=== PATIENT | male | born 1945 | race Caucasian/White ===

== ENCOUNTER 2020-09-13 11:04 | Inpatient (IN) | payer BC, OTHER ==
[2020-09-13 13:00] LABS: URINE APPEARANCE CLEAR; URINE BILIRUBIN NEGATIVE (NEGATIVE); URINE COLOR YELLOW; URINE GLUCOSE (UA) 3+ (NEGATIVE); URINE KETONE NEGATIVE (NEGATIVE); URINE LEUK ESTERASE NEGATIVE (NEGATIVE); URINE NITRITE NEGATIVE (NEGATIVE); URINE PROTEIN NEGATIVE (NEGATIVE); URINE UROBILINOGEN 0.2 mg/dL (0.2-1.0)
[2020-09-13 13:28] LABS: BASO % 0.6 % (0-2.0); EOS % 4.1 % (0-4.5); HEMOGLOBIN 15.2 GM/dL (11.7-16.9); LYMPH % 17.9 % (8-40); MCH 27.7 pg (25.7-33.7); MCHC 33.1 g/dl (32.0-35.9); MEAN CELL VOLUME 83.9 fl (80-96); MEAN PLT VOLUME 9.3 fl (7.5-11.1); MONO % 9.6 % (3.8-10.2); NEUT % 67.8 % (42.8-82.8); PLATELET COUNT 171 10^3/uL (134-434); RBC 5.49 M/mm3 (4.00-5.60); RDW 14.3 % (11.9-15.9); WHITE BLOOD COUNT 5.8 K/mm3 (4.0-10.0)
[2020-09-13 13:51] LABS: CALCIUM 9.2 mg/dL (8.5-10.1)
[2020-09-13 13:52] LABS: ALBUMIN 3.8 g/dl (3.4-5.0); BLOOD UREA NITROGEN 15.4 mg/dL (7-18)
[2020-09-13 13:55] LABS: CREATININE 1.1 mg/dL (0.55-1.3)
[2020-09-13 13:56] LABS: BILIRUBIN,TOTAL 0.4 mg/dL (0.2-1)
[2020-09-13 13:57] LABS: TOT PROT 7.3 g/dl (6.4-8.2)
[2020-09-13] MEDS ORDERED: CEFTRIAXONE 1,000 MG in DEXTROSE 5%-WATER - 50 ML IVPB ONE (16:50)
[2020-09-13] MEDS ORDERED: CEFTRIAXONE 1 GM/50 ML BAG ONE (17:15)
[2020-09-13 18:28] LABS: EPI CELLS 1 /uL (0-25.1); HYALINE CASTS 0 /uL (0-3.1); URINE BACTERIA 12 /uL (0-1359); URINE RBC 2 /uL (0-23.9); URINE WBC 1 /uL (0-25.8)
[2020-09-13] MEDS: SODIUM CHLORIDE 0.45% 1,000 ML IV SCH (23:42)
[2020-09-14 01:46] LABS: HEMATOCRIT 45.8 % (35.4-49); HEMOGLOBIN 15.1 GM/dL (11.7-16.9); MCH 27.5 pg (25.7-33.7); MCHC 32.9 g/dl (32.0-35.9); MEAN CELL VOLUME 83.5 fl (80-96); MEAN PLT VOLUME 9.2 fl (7.5-11.1); PLATELET COUNT 188 10^3/uL (134-434); RBC 5.48 M/mm3 (4.00-5.60); RDW 14.2 % (11.9-15.9); WHITE BLOOD COUNT 8.5 K/mm3 (4.0-10.0)
[2020-09-14 01:54] LABS: INR 1.02 (0.83-1.09); PROTHROMBIN TIME (PATIENT) 12.5 SEC (9.7-13.0)
[2020-09-14 01:56] LABS: ACTIVATED PTT 49.9 SECONDS (25.2-36.5)
[2020-09-14 03:23] VITALS: BMI 30.1
[2020-09-14] MEDS: INSULIN SLIDING SCALE (NOVOLOG) 1 VIAL SQ SCH ×4 (07:01→21:32)
[2020-09-14 07:17] LABS: BASO % 0.6 % (0-2.0); HEMATOCRIT 44.4 % (35.4-49); HEMOGLOBIN 14.7 GM/dL (11.7-16.9); LYMPH % 17.8 % (8-40); MCH 27.8 pg (25.7-33.7); MCHC 33.1 g/dl (32.0-35.9); MEAN CELL VOLUME 83.9 fl (80-96); MEAN PLT VOLUME 9.6 fl (7.5-11.1); MONO % 10.9 % (3.8-10.2); NEUT % 68.7 % (42.8-82.8); PLATELET COUNT 176 10^3/uL (134-434); RBC 5.29 M/mm3 (4.00-5.60); RDW 14.6 % (11.9-15.9); WHITE BLOOD COUNT 8.5 K/mm3 (4.0-10.0)
[2020-09-14 07:48] LABS: ALBUMIN 3.4 g/dl (3.4-5.0); BLOOD UREA NITROGEN 18.8 mg/dL (7-18)
[2020-09-14 07:49] LABS: CALCIUM 9.3 mg/dL (8.5-10.1)
[2020-09-14 07:54] LABS: BILIRUBIN,TOTAL 0.6 mg/dL (0.2-1); TOT PROT 6.6 g/dl (6.4-8.2)
[2020-09-14] MEDS ORDERED: DEXTROSE 5%-WATER - 50 ML IVPB ONE (09:34)
[2020-09-14] MEDS ORDERED: cefTRIAXone SODIUM 1 GM VIAL ONE (09:34)
[2020-09-14] MEDS: METOPROLOL TARTRATE 25 MG TABLET (FP) PO SCH (09:39)
[2020-09-14] MEDS: HYDROCHLOROTHIAZIDE 25 MG TABLET (FP) PO SCH (09:39)
[2020-09-14] MEDS: ALLOPURINOL 100 MG TABLET (FP) PO SCH (09:40)
[2020-09-14] MEDS: CEFTRIAXONE 1 GM in DEXTROSE 5%-WATER - 50 ML IVPB SCH (09:40)
[2020-09-14] MEDS: LOSARTAN POTASSIUM 50 MG TABLET PO SCH (09:40)
[2020-09-14] MEDS: TAMSULOSIN HCL 0.4 MG CAP PO SCH (09:41)
[2020-09-14] MEDS: SODIUM CHLORIDE 0.45% 1,000 ML IV SCH (13:15)
[2020-09-14 15:07] LABS: HEMATOCRIT 45.3 % (35.4-49); HEMOGLOBIN 15.2 GM/dL (11.7-16.9); MCH 28.1 pg (25.7-33.7); MCHC 33.4 g/dl (32.0-35.9); MEAN PLT VOLUME 9.4 fl (7.5-11.1); PLATELET COUNT 171 10^3/uL (134-434); RDW 14.6 % (11.9-15.9); WHITE BLOOD COUNT 9.5 K/mm3 (4.0-10.0)
[2020-09-14] MEDS: ACETAMINOPHEN 325 MG TABLET (FP) PO PRN ×2 (15:42→23:34)
[2020-09-14] MEDS ORDERED: ATORVASTATIN CA 20 MG TABLET (FP) PO SCH (22:00)
[2020-09-15] MEDS: SODIUM CHLORIDE 0.45% 1,000 ML IV SCH ×3 (01:35→17:35)
[2020-09-15] MEDS: INSULIN SLIDING SCALE (NOVOLOG) 1 VIAL SQ SCH ×4 (06:23→21:25)
[2020-09-15] MEDS ORDERED: DEXTROSE 5%-WATER - 50 ML IVPB ONE (09:58)
[2020-09-15] MEDS ORDERED: cefTRIAXone SODIUM 1 GM VIAL ONE (09:58)
[2020-09-15] MEDS: CEFTRIAXONE 1 GM in DEXTROSE 5%-WATER - 50 ML IVPB SCH (10:07)
[2020-09-15] MEDS: HYDROCHLOROTHIAZIDE 25 MG TABLET (FP) PO SCH (10:07)
[2020-09-15] MEDS: TAMSULOSIN HCL 0.4 MG CAP PO SCH (10:07)
[2020-09-15] MEDS: ALLOPURINOL 100 MG TABLET (FP) PO SCH (10:07)
[2020-09-15] MEDS: METOPROLOL TARTRATE 25 MG TABLET (FP) PO SCH (10:07)
[2020-09-15] MEDS: LOSARTAN POTASSIUM 50 MG TABLET PO SCH (10:07)
[2020-09-15 11:44] LABS: HEMATOCRIT 46.9 % (35.4-49); HEMOGLOBIN 15.4 GM/dL (11.7-16.9); MCH 27.5 pg (25.7-33.7); MCHC 32.9 g/dl (32.0-35.9); MEAN CELL VOLUME 83.4 fl (80-96); MEAN PLT VOLUME 9.3 fl (7.5-11.1); PLATELET COUNT 173 10^3/uL (134-434); RBC 5.62 M/mm3 (4.00-5.60); RDW 14.5 % (11.9-15.9); WHITE BLOOD COUNT 7.9 K/mm3 (4.0-10.0)
[2020-09-15] MEDS ORDERED: MIDAZOLAM HCL 2 MG/2 ML SINGLE DOSE VIAL ONE (15:17)
[2020-09-15] MEDS ORDERED: ceFAZolin 2 GRAM PREMIX BAG IVPB ONE (15:20)
[2020-09-15] MEDS ORDERED: ACETAMINOPHEN 325 MG TABLET (FP) PO PRN (15:59)
[2020-09-15] MEDS: ATORVASTATIN CA 20 MG TABLET (FP) PO SCH (21:24)
[2020-09-15] MEDS: MORPHINE SULFATE 2 MG/ML VIAL IVPUSH PRN (23:18)
[2020-09-16] MEDS: MORPHINE SULFATE 2 MG/ML VIAL IVPUSH PRN (06:07)
[2020-09-16] MEDS: INSULIN SLIDING SCALE (NOVOLOG) 1 VIAL SQ SCH ×4 (06:08→21:22)
[2020-09-16] MEDS: SODIUM CHLORIDE 0.45% 1,000 ML IV SCH ×2 (06:09→21:22)
[2020-09-16 07:37] LABS: BASO % 0.2 % (0-2.0); EOS % 1.2 % (0-4.5); HEMOGLOBIN 15.1 GM/dL (11.7-16.9); LYMPH % 8.6 % (8-40); MCH 27.8 pg (25.7-33.7); MCHC 32.9 g/dl (32.0-35.9); MEAN CELL VOLUME 84.3 fl (80-96); MEAN PLT VOLUME 9.6 fl (7.5-11.1); MONO % 11.7 % (3.8-10.2); NEUT % 78.3 % (42.8-82.8); PLATELET COUNT 170 10^3/uL (134-434); RBC 5.46 M/mm3 (4.00-5.60); RDW 14.6 % (11.9-15.9); WHITE BLOOD COUNT 10.3 K/mm3 (4.0-10.0)
[2020-09-16 07:57] LABS: ALBUMIN 3.1 g/dl (3.4-5.0); BLOOD UREA NITROGEN 24.6 mg/dL (7-18); CALCIUM 8.6 mg/dL (8.5-10.1)
[2020-09-16 08:00] LABS: CREATININE 1.4 mg/dL (0.55-1.3)
[2020-09-16 08:02] LABS: BILIRUBIN,TOTAL 0.7 mg/dL (0.2-1); TOT PROT 6.5 g/dl (6.4-8.2)
[2020-09-16] MEDS: TAMSULOSIN HCL 0.4 MG CAP PO SCH (08:34)
[2020-09-16] MEDS ORDERED: cefTRIAXone SODIUM 1 GM VIAL ONE (09:15)
[2020-09-16] MEDS ORDERED: DEXTROSE 5%-WATER - 50 ML IVPB ONE (09:15)
[2020-09-16] MEDS: CEFTRIAXONE 1 GM in DEXTROSE 5%-WATER - 50 ML IVPB SCH (09:27)
[2020-09-16] MEDS: HYDROCHLOROTHIAZIDE 25 MG TABLET (FP) PO SCH (09:27)
[2020-09-16] MEDS: METOPROLOL TARTRATE 25 MG TABLET (FP) PO SCH (09:27)
[2020-09-16] MEDS: LOSARTAN POTASSIUM 50 MG TABLET PO SCH (09:27)
[2020-09-16] MEDS: ALLOPURINOL 100 MG TABLET (FP) PO SCH (09:27)
[2020-09-16] MEDS: ATORVASTATIN CA 20 MG TABLET (FP) PO SCH (21:22)
[2020-09-17] MEDS: MORPHINE SULFATE 2 MG/ML VIAL IVPUSH PRN (00:10)
[2020-09-17 06:24] LABS: BASO % 0.3 % (0-2.0); EOS % 4.2 % (0-4.5); HEMATOCRIT 44.9 % (35.4-49); HEMOGLOBIN 14.6 GM/dL (11.7-16.9); LYMPH % 15.1 % (8-40); MCH 27.5 pg (25.7-33.7); MCHC 32.5 g/dl (32.0-35.9); MEAN CELL VOLUME 84.5 fl (80-96); MEAN PLT VOLUME 9.3 fl (7.5-11.1); MONO % 10.9 % (3.8-10.2); NEUT % 69.5 % (42.8-82.8); PLATELET COUNT 157 10^3/uL (134-434); RBC 5.31 M/mm3 (4.00-5.60); RDW 14.5 % (11.9-15.9); WHITE BLOOD COUNT 7.2 K/mm3 (4.0-10.0)
[2020-09-17] MEDS: INSULIN SLIDING SCALE (NOVOLOG) 1 VIAL SQ SCH ×4 (06:25→21:29)
[2020-09-17 06:43] LABS: CALCIUM 8.4 mg/dL (8.5-10.1)
[2020-09-17 06:44] LABS: ALBUMIN 2.8 g/dl (3.4-5.0)
[2020-09-17 06:47] LABS: CREATININE 1.4 mg/dL (0.55-1.3)
[2020-09-17 06:49] LABS: BILIRUBIN,TOTAL 0.4 mg/dL (0.2-1); TOT PROT 6.2 g/dl (6.4-8.2)
[2020-09-17] MEDS: SODIUM CHLORIDE 0.45% 1,000 ML IV SCH ×3 (08:29→21:32)
[2020-09-17] MEDS: TAMSULOSIN HCL 0.4 MG CAP PO SCH (08:30)
[2020-09-17] MEDS ORDERED: DEXTROSE 5%-WATER - 50 ML IVPB ONE (09:33)
[2020-09-17] MEDS ORDERED: cefTRIAXone SODIUM 1 GM VIAL ONE (09:33)
[2020-09-17] MEDS: CEFTRIAXONE 1 GM in DEXTROSE 5%-WATER - 50 ML IVPB SCH (09:38)
[2020-09-17] MEDS: ALLOPURINOL 100 MG TABLET (FP) PO SCH (09:39)
[2020-09-17] MEDS: HYDROCHLOROTHIAZIDE 25 MG TABLET (FP) PO SCH (09:39)
[2020-09-17] MEDS: LOSARTAN POTASSIUM 50 MG TABLET PO SCH (09:39)
[2020-09-17] MEDS: METOPROLOL TARTRATE 25 MG TABLET (FP) PO SCH (09:39)
[2020-09-17] MEDS: ATORVASTATIN CA 20 MG TABLET (FP) PO SCH (21:29)
[2020-09-18] MEDS: MORPHINE SULFATE 2 MG/ML VIAL IVPUSH PRN (00:04)
[2020-09-18] MEDS: INSULIN SLIDING SCALE (NOVOLOG) 1 VIAL SQ SCH ×5 (06:10→21:59)
[2020-09-18 07:41] LABS: BASO % 0.4 % (0-2.0); EOS % 3.4 % (0-4.5); HEMATOCRIT 42.3 % (35.4-49); LYMPH % 18.3 % (8-40); MCH 27.7 pg (25.7-33.7); MEAN CELL VOLUME 83.8 fl (80-96); MEAN PLT VOLUME 9.4 fl (7.5-11.1); MONO % 11.3 % (3.8-10.2); NEUT % 66.6 % (42.8-82.8); PLATELET COUNT 175 10^3/uL (134-434); RBC 5.04 M/mm3 (4.00-5.60); RDW 14.3 % (11.9-15.9); WHITE BLOOD COUNT 7.2 K/mm3 (4.0-10.0)
[2020-09-18 07:55] LABS: ALBUMIN 2.6 g/dl (3.4-5.0); BLOOD UREA NITROGEN 21.6 mg/dL (7-18); CALCIUM 8.6 mg/dL (8.5-10.1)
[2020-09-18 07:59] LABS: CREATININE 1.3 mg/dL (0.55-1.3)
[2020-09-18 08:00] LABS: BILIRUBIN,TOTAL 0.4 mg/dL (0.2-1)
[2020-09-18] MEDS ORDERED: PT OWN MED DRAWER 7, Y5N ONE (09:39)
[2020-09-18] MEDS ORDERED: cefTRIAXone SODIUM 1 GM VIAL ONE (09:39)
[2020-09-18] MEDS ORDERED: DEXTROSE 5%-WATER - 50 ML IVPB ONE (09:40)
[2020-09-18] MEDS: METOPROLOL TARTRATE 25 MG TABLET (FP) PO SCH (10:08)
[2020-09-18] MEDS: ALLOPURINOL 100 MG TABLET (FP) PO SCH (10:08)
[2020-09-18] MEDS: LOSARTAN POTASSIUM 50 MG TABLET PO SCH (10:08)
[2020-09-18] MEDS: HYDROCHLOROTHIAZIDE 25 MG TABLET (FP) PO SCH (10:08)
[2020-09-18] MEDS: CEFTRIAXONE 1 GM in DEXTROSE 5%-WATER - 50 ML IVPB SCH (10:08)
[2020-09-18] MEDS: TAMSULOSIN HCL 0.4 MG CAP PO SCH (10:08)
[2020-09-18] MEDS: ATORVASTATIN CA 20 MG TABLET (FP) PO SCH (21:59)
[2020-09-19] MEDS: INSULIN SLIDING SCALE (NOVOLOG) 1 VIAL SQ SCH ×4 (06:13→22:11)
[2020-09-19] MEDS: SODIUM CHLORIDE 0.45% 1,000 ML IV SCH ×4 (06:13→16:37)
[2020-09-19] MEDS ORDERED: DEXTROSE 5%-WATER - 50 ML IVPB ONE (08:28)
[2020-09-19] MEDS ORDERED: cefTRIAXone SODIUM 1 GM VIAL ONE (08:28)
[2020-09-19] MEDS: TAMSULOSIN HCL 0.4 MG CAP PO SCH (08:58)
[2020-09-19] MEDS: METOPROLOL TARTRATE 25 MG TABLET (FP) PO SCH (09:17)
[2020-09-19] MEDS: HYDROCHLOROTHIAZIDE 25 MG TABLET (FP) PO SCH (09:17)
[2020-09-19] MEDS: LOSARTAN POTASSIUM 50 MG TABLET PO SCH (09:17)
[2020-09-19] MEDS: CEFTRIAXONE 1 GM in DEXTROSE 5%-WATER - 50 ML IVPB SCH (09:18)
[2020-09-19] MEDS: ALLOPURINOL 100 MG TABLET (FP) PO SCH (09:18)
[2020-09-19] MEDS: ATORVASTATIN CA 20 MG TABLET (FP) PO SCH (22:11)
[2020-09-20] MEDS: INSULIN SLIDING SCALE (NOVOLOG) 1 VIAL SQ SCH ×4 (06:20→21:46)
[2020-09-20 08:40] LABS: ALBUMIN 2.9 g/dl (3.4-5.0); BLOOD UREA NITROGEN 20.7 mg/dL (7-18)
[2020-09-20 08:43] LABS: CREATININE 1.6 mg/dL (0.55-1.3)
[2020-09-20 08:44] LABS: BILIRUBIN,TOTAL 0.4 mg/dL (0.2-1)
[2020-09-20 08:45] LABS: TOT PROT 6.5 g/dl (6.4-8.2)
[2020-09-20] MEDS ORDERED: cefTRIAXone SODIUM 1 GM VIAL ONE (08:57)
[2020-09-20] MEDS ORDERED: DEXTROSE 5%-WATER - 50 ML IVPB ONE (08:57)
[2020-09-20] MEDS: HYDROCHLOROTHIAZIDE 25 MG TABLET (FP) PO SCH (09:05)
[2020-09-20] MEDS: ALLOPURINOL 100 MG TABLET (FP) PO SCH (09:05)
[2020-09-20] MEDS: CEFTRIAXONE 1 GM in DEXTROSE 5%-WATER - 50 ML IVPB SCH (09:05)
[2020-09-20] MEDS: TAMSULOSIN HCL 0.4 MG CAP PO SCH (09:05)
[2020-09-20] MEDS: LOSARTAN POTASSIUM 50 MG TABLET PO SCH (09:05)
[2020-09-20] MEDS: METOPROLOL TARTRATE 25 MG TABLET (FP) PO SCH (09:05)
[2020-09-20] MEDS: SODIUM CHLORIDE 0.45% 1,000 ML IV SCH (16:08)
[2020-09-20] MEDS: ATORVASTATIN CA 20 MG TABLET (FP) PO SCH (21:46)
[2020-09-21] MEDS: INSULIN SLIDING SCALE (NOVOLOG) 1 VIAL SQ SCH ×4 (06:34→21:11)
[2020-09-21 06:58] LABS: BASO % 0.6 % (0-2.0); EOS % 2.8 % (0-4.5); HEMATOCRIT 41.6 % (35.4-49); HEMOGLOBIN 13.8 GM/dL (11.7-16.9); LYMPH % 15.2 % (8-40); MCH 27.7 pg (25.7-33.7); MCHC 33.2 g/dl (32.0-35.9); MEAN CELL VOLUME 83.5 fl (80-96); MEAN PLT VOLUME 8.4 fl (7.5-11.1); MONO % 11.6 % (3.8-10.2); NEUT % 69.8 % (42.8-82.8); PLATELET COUNT 216 10^3/uL (134-434); RBC 4.99 M/mm3 (4.00-5.60); RDW 14.3 % (11.9-15.9); WHITE BLOOD COUNT 8.4 K/mm3 (4.0-10.0)
[2020-09-21 07:27] LABS: CALCIUM 8.8 mg/dL (8.5-10.1)
[2020-09-21 07:28] LABS: ALBUMIN 2.7 g/dl (3.4-5.0); BLOOD UREA NITROGEN 25.9 mg/dL (7-18)
[2020-09-21 07:31] LABS: CREATININE 1.7 mg/dL (0.55-1.3)
[2020-09-21 07:33] LABS: BILIRUBIN,TOTAL 0.4 mg/dL (0.2-1); TOT PROT 6.4 g/dl (6.4-8.2)
[2020-09-21] MEDS ORDERED: cefTRIAXone SODIUM 1 GM VIAL ONE (09:14)
[2020-09-21] MEDS ORDERED: DEXTROSE 5%-WATER - 50 ML IVPB ONE (09:14)
[2020-09-21] MEDS: TAMSULOSIN HCL 0.4 MG CAP PO SCH (09:22)
[2020-09-21] MEDS: HYDROCHLOROTHIAZIDE 25 MG TABLET (FP) PO SCH (09:22)
[2020-09-21] MEDS: ALLOPURINOL 100 MG TABLET (FP) PO SCH (09:22)
[2020-09-21] MEDS: LOSARTAN POTASSIUM 50 MG TABLET PO SCH (09:22)
[2020-09-21] MEDS: METOPROLOL TARTRATE 25 MG TABLET (FP) PO SCH (09:22)
[2020-09-21] MEDS: CEFTRIAXONE 1 GM in DEXTROSE 5%-WATER - 50 ML IVPB SCH (09:22)
[2020-09-21] MEDS: SODIUM CHLORIDE 0.45% 1,000 ML IV SCH ×2 (12:21→17:11)
[2020-09-21] MEDS: ATORVASTATIN CA 20 MG TABLET (FP) PO SCH (21:11)
[2020-09-22] MEDS: INSULIN SLIDING SCALE (NOVOLOG) 1 VIAL SQ SCH ×4 (06:42→21:21)
[2020-09-22] MEDS ORDERED: cefTRIAXone SODIUM 1 GM VIAL ONE (08:21)
[2020-09-22] MEDS ORDERED: DEXTROSE 5%-WATER - 50 ML IVPB ONE (08:21)
[2020-09-22] MEDS: CEFTRIAXONE 1 GM in DEXTROSE 5%-WATER - 50 ML IVPB SCH (09:30)
[2020-09-22] MEDS ORDERED: SUCCINYLCHOLINE CHLORIDE 200 MG/10 ML SYRINGE ONE (12:08)
[2020-09-22] MEDS ORDERED: MIDAZOLAM HCL 2 MG/2 ML SINGLE DOSE VIAL ONE ×2 (12:08→13:02)
[2020-09-22] MEDS ORDERED: PROPOFOL 20 ML ONE (12:08)
[2020-09-22] MEDS ORDERED: ceFAZolin SODIUM 1 GM VIAL IVPB ONE (12:29)
[2020-09-22] MEDS ORDERED: ACETAMINOPHEN 325 MG TABLET (FP) PO PRN ×3 (13:15→14:45)
[2020-09-22] MEDS ORDERED: ONDANSETRON 4 MG/2 ML VIAL IVPUSH PRN (13:20)
[2020-09-22] MEDS ORDERED: CEPHALEXIN MONOHYDRATE 500 MG CAPSULE (UD) PO SCH (13:30)
[2020-09-22] MEDS ORDERED: oxyCODONE HCL 5 MG TABLET PO PRN (14:45)
[2020-09-22] MEDS: ALLOPURINOL 100 MG TABLET (FP) PO SCH (14:52)
[2020-09-22] MEDS: HYDROCHLOROTHIAZIDE 25 MG TABLET (FP) PO SCH (14:53)
[2020-09-22] MEDS: LOSARTAN POTASSIUM 50 MG TABLET PO SCH (14:53)
[2020-09-22] MEDS: TAMSULOSIN HCL 0.4 MG CAP PO SCH (14:53)
[2020-09-22] MEDS: METOPROLOL TARTRATE 25 MG TABLET (FP) PO SCH (14:53)
[2020-09-22] MEDS: SODIUM CHLORIDE 0.45% 1,000 ML IV SCH (14:58)
[2020-09-22] MEDS: ATORVASTATIN CA 20 MG TABLET (FP) PO SCH (21:21)
[2020-09-22] MEDS: DOCUSATE SODIUM 100 MG CAPSULE (FP) PO SCH (21:21)
[2020-09-23] MEDS: INSULIN SLIDING SCALE (NOVOLOG) 1 VIAL SQ SCH ×4 (06:33→21:26)
[2020-09-23] MEDS: SODIUM CHLORIDE 0.45% 1,000 ML IV SCH ×2 (06:33→14:30)
[2020-09-23] MEDS: TAMSULOSIN HCL 0.4 MG CAP PO SCH (08:12)
[2020-09-23 08:16] LABS: CALCIUM 8.2 mg/dL (8.5-10.1)
[2020-09-23 08:17] LABS: ALBUMIN 2.3 g/dl (3.4-5.0); BLOOD UREA NITROGEN 17.5 mg/dL (7-18)
[2020-09-23 08:20] LABS: CREATININE 1.3 mg/dL (0.55-1.3)
[2020-09-23 08:22] LABS: BILIRUBIN,TOTAL 0.4 mg/dL (0.2-1); TOT PROT 5.7 g/dl (6.4-8.2)
[2020-09-23] MEDS ORDERED: cefTRIAXone SODIUM 1 GM VIAL ONE (09:32)
[2020-09-23] MEDS ORDERED: DEXTROSE 5%-WATER - 50 ML IVPB ONE (09:32)
[2020-09-23] MEDS ORDERED: CEFTRIAXONE 1 GM in DEXTROSE 5%-WATER - 50 ML IVPB SCH (10:00)
[2020-09-23] MEDS: HYDROCHLOROTHIAZIDE 25 MG TABLET (FP) PO SCH (10:28)
[2020-09-23] MEDS: LOSARTAN POTASSIUM 50 MG TABLET PO SCH (10:29)
[2020-09-23] MEDS: ALLOPURINOL 100 MG TABLET (FP) PO SCH (10:29)
[2020-09-23] MEDS: METOPROLOL TARTRATE 25 MG TABLET (FP) PO SCH ×2 (10:29→21:26)
[2020-09-23] MEDS: DOCUSATE SODIUM 100 MG CAPSULE (FP) PO SCH (21:26)
[2020-09-23] MEDS: ATORVASTATIN CA 20 MG TABLET (FP) PO SCH (21:26)
[2020-09-24] MEDS: INSULIN SLIDING SCALE (NOVOLOG) 1 VIAL SQ SCH ×4 (06:39→21:52)
[2020-09-24] MEDS: TAMSULOSIN HCL 0.4 MG CAP PO SCH (08:44)
[2020-09-24] MEDS: HYDROCHLOROTHIAZIDE 25 MG TABLET (FP) PO SCH (10:07)
[2020-09-24] MEDS: ALLOPURINOL 100 MG TABLET (FP) PO SCH (10:07)
[2020-09-24] MEDS: METOPROLOL TARTRATE 25 MG TABLET (FP) PO SCH ×2 (10:07→21:52)
[2020-09-24] MEDS: LOSARTAN POTASSIUM 50 MG TABLET PO SCH (10:07)
[2020-09-24] MEDS: SODIUM CHLORIDE 0.45% 1,000 ML IV SCH ×2 (14:24→21:53)
[2020-09-24] MEDS: ATORVASTATIN CA 20 MG TABLET (FP) PO SCH (21:52)
[2020-09-24] MEDS: DOCUSATE SODIUM 100 MG CAPSULE (FP) PO SCH (21:52)
[2020-09-25] MEDS: INSULIN SLIDING SCALE (NOVOLOG) 1 VIAL SQ SCH ×2 (06:43→12:02)
[2020-09-25] MEDS: TAMSULOSIN HCL 0.4 MG CAP PO SCH (08:16)
[2020-09-25] MEDS: SODIUM CHLORIDE 0.45% 1,000 ML IV SCH (10:01)
[2020-09-25] MEDS: HYDROCHLOROTHIAZIDE 25 MG TABLET (FP) PO SCH (10:01)
[2020-09-25] MEDS: ALLOPURINOL 100 MG TABLET (FP) PO SCH (10:01)
[2020-09-25] MEDS: METOPROLOL TARTRATE 25 MG TABLET (FP) PO SCH (10:02)
[2020-09-25] MEDS: LOSARTAN POTASSIUM 50 MG TABLET PO SCH (10:02)
[2020-09-25 14:11] VITALS: BP 135/77; PULSE 90; TEMP 98.6
== END 2020-09-25 16:06 | disposition home or self-care (01) | DRG 666 ==
LOC: JER 11:04 → JERBED 19:58 → J4S 09-14 00:56
PROVIDERS: ADMIT Internal Medicine; ATTEND Internal Medicine
PROC: 0TBB8ZZ Excision of Bladder, Via Natural or Artificial Opening Endoscopic (ICD-10-PCS; 2020-09-15)
PROC: 0TC78ZZ Extirpation of Matter from Left Ureter, Via Natural or Artificial Opening Endoscopic (ICD-10-PCS; 2020-09-19)
PROC: 0V508ZZ Destruction of Prostate, Via Natural or Artificial Opening Endoscopic (ICD-10-PCS; 2020-09-22)
PROC: 0VT08ZZ Resection of Prostate, Via Natural or Artificial Opening Endoscopic (ICD-10-PCS; principal; 2020-09-22 11:00)
DX: D49.4 Neoplasm of unspecified behavior of bladder (principal); N39.0 Urinary tract infection, site not specified; N17.9 Acute kidney failure, unspecified; N20.1 Calculus of ureter; I10 Essential (primary) hypertension; E78.5 Hyperlipidemia, unspecified; E11.9 Type 2 diabetes mellitus without complications; N40.0 Benign prostatic hyperplasia without lower urinary tract symptoms; R31.0 Gross hematuria; R33.9 Retention of urine, unspecified
CPT/HCPCS: 36415; 74176-TC; 76775-TC; 80048; 80053; 81003; 82962; 85025; 85027; 85610; 85730; 86850; 86900; 86901; 87086; 88305-TC; 88307-TC; 93005; 93010; 94010; 94760; 97116-GP; 97161-GP; 99285-25; C9803; U0003; U0005